=== PATIENT | female | born 1985 | race Caucasian/White ===

== ENCOUNTER 2020-05-12 15:58 | Inpatient (IN) ==
[2020-05-12] MEDS ORDERED: OXYTOCIN/0.9 % SODIUM CHLORIDE 30 UNITS/500 ML BAG IV ONE ×2 (16:09→20:36)
[2020-05-12] MEDS ORDERED: RINGER'S SOLUTION,LACTATED 1,000 ML IV ONE (16:09)
[2020-05-12] MEDS ORDERED: DEXTROSE 5%-LACTATED RINGERS 1,000 ML IV PRN (16:09)
[2020-05-12] MEDS ORDERED: ONDANSETRON 4 MG TAB.RAPDIS PO PRN (16:09)
[2020-05-12] MEDS ORDERED: BUPIVACAINE HCL/0.9 % NACL/PF 250 ML EP PRN (16:37)
[2020-05-12] MEDS ORDERED: ONDANSETRON HCL/PF 2 MG/ML VIAL IV PRN (16:37)
[2020-05-12] MEDS ORDERED: NALOXONE HCL 1 MG/1 ML SYRG IV PRN (16:37)
[2020-05-12] MEDS ORDERED: fentaNYL CITRATE/PF 50 MCG/ML AMPUL ONE (16:41)
[2020-05-12] MEDS ORDERED: fentaNYL CITRATE/PF 50 MCG/ML AMPUL IT SCH (16:45)
--- NOTE | 2020-05-12 17:05 | ANES ---
Post Anesthesia Discharge - Transfer of Care Transfer of Care handoff given to nurse: Yes - Anesthesia Post Op Note Anesthesia Post Op Note: Care transferred to OB RN
--- NOTE | 2020-05-12 17:05 | ANES ---
Anesthesia Pre Procedure Eval Vitals/Labs: Last Vital Signs Temp 37.2 C 05/12/20 16:11 Pulse 90 05/12/20 16:11 Resp 20 05/12/20 16:11 BP 124/79 05/12/20 16:11 Pulse Ox 97 05/12/20 16:11 HOME MEDICATIONS prenat.vits,roberth,etu-tcdp-vnymo 1 tab PO DAILY 11/12/19 [Last Taken Unknown] aspirin 81 mg tablet,delayed release 81 mg PO DAILY 03/10/20 [Last Taken Unknown] acetone (urine) test See Rx Instructions .ROUTE .MEDSUPPLY #100 ea 03/16/20 [Last Taken Unknown] blood sugar diagnostic See Rx Instructions .ROUTE .MEDSUPPLY #100 ea 03/16/20 [Last Taken Unknown] blood-glucose meter See Rx Instructions .ROUTE .MEDSUPPLY #1 ea 03/16/20 [Last Taken Unknown] lancets 28 gauge See Rx Instructions .ROUTE .MEDSUPPLY #100 ea 03/16/20 [Last Taken Unknown] Allergies/Adverse Reactions: Allergies Allergy/AdvReac Type Severity Reaction Status Date / Time No Known Allergies Allergy Verified 05/12/20 16:14 - Planned Procedure Planned Procedure: active labor Medication List Reviewed:: Yes Allergies Verified: Yes Medical History (Last Reviewed 05/12/20 @ 17:04 by Sean Leyva CRNA) Gestational diabetes mellitus (GDM) (Acute) Onset Date: 03/16/20 ASCUS with positive high risk HPV cervical (Acute) 2011 - did not follow up with colposcopy or repeat pap Syncope Last episode September 2019. Sporadic. No obvious trigger. Family history of seizures (passing out)- mother, brother, sister. Brother and Sister undiagnosed. Pt has been worked up by neuro and cardio in [place] with no resulting diagnosis. De Quervain's disease (radial styloid tenosynovitis) Onset Date: ~05/2012 Left Frequent headaches tx with ibuprofen and rest HPV (human papilloma virus) infection Onset Date: ~2011 Surgical History (Last Reviewed 05/12/20 @ 17:04 by Sean Leyva CRNA) History of carpal tunnel release Onset Date: ~07/2013 left first dorsal compartment of the wrist and excision of vertical septum- Dr. Mason History of colposcopy Onset Date: ~06/08/11 No bx due to Status post de Quervain's release surgery Onset Date: ~05/2012 Left- Dr. Abreu 05/2012- Dr. Casper -09/2012 Family History (Last Reviewed 05/12/20 @ 17:04 by Sean Leyva CRNA) Mother Seizures Father Alive and well Brother Seizures passes out Sister Seizures passes out - Family Anesthesia History Family History:: no untoward family reactions to anesthesia - Airway/Neck/Teeth Within Normal Limits:: Yes Teeth Condition: intact Neck Exam: full range of motion Mallampatti Score: 1 Thyromental (T-M) distance: > 6 cm Mandibulo Hyoid distance: > 3 cm - Respiratory Respiratory Physical: lungs clear Smoking Status: Never smoker Sleep Apnea currently treated: No Sleep Apnea by current assessment: No - Cardiovascular Tolerate Activity: Good Heart Sounds: S1 & S2, Regular - Gastrointestinal NPO since: 1200 - Anesthesia Assessment and Plan ASA Class: PS, II, E Anesthesia Type Plan: Epidural Planned difficult intubation/equipment available: No
--- NOTE | 2020-05-12 17:06 | ANES ---
Post Anesthesia Assessment - Vital Signs Vitals: Last Vital Signs Temp 37.2 C 05/12/20 16:11 Pulse 90 05/12/20 16:11 Resp 20 05/12/20 16:11 BP 124/79 05/12/20 16:11 Pulse Ox 97 05/12/20 16:11 Airway Patency: Normal - Mental Status Level Of Consciousness: Awake - Pain Level Pain Score: 2 - N/V Assessment Nausea/Vomiting Presence: None Dehydration:: No
--- NOTE | 2020-05-12 17:07 | ANES ---
Anesthesia Procedure Note Procedure Note: ANESTHESIA PROCEDURE NOTE Date of Procedure: 05/12/2020 Time of procedure: 1650. Performed by: Dio Leyva CRNA Director Of Assisted Living: None. Preprocedure diagnosis: Active labor. Post procedure diagnosis: Same. Procedure: Insertion of labor epidural. Indications: The patient is a 34-year-old multi female in active labor requesting labor epidural for pain management. Findings: See below. Details of the procedure: The patient was placed in a sitting position. Back was prepped with DuraPrep. Patient was then draped in a sterile fashion. Lidocaine 1% was infiltrated to the skin and subcutaneous tissues at the level of the L3 4 interspace. The epidural space was identified using a 18-gauge Tuohy needle with [id number] technique. 20 mcg fentanyl was given intrathecally using a 27 ga. spinal needle. Epidural catheter was inserted without difficulty. Negative test dose was elicited using 5 mL of 1.5% preservative-free lidocaine plus epinephrine 1 200,000. The epidural catheter was then taped and secured in place. EBL: Minimal. Fluids: N/A. Specimen: N/A. Post procedure condition: The patient tolerated the procedure well. No complications were noted. Thank you for this consultation. Connor CRNA
--- NOTE | 2020-05-12 17:09 | HP ---
Chief Complaint - Chief Complaint Date of Service: 05/12/20 Time of Service: 17:00 Chief Complaint: decreased movement History of Present Illness: 34 yo at 38 weeks presents to L&D for management of labor. She was seen in the office today for routine visit complaining of decreased movement. NST was reassuring and revealed frequent contractions. She was dilated to 7/90/0. This complicated by COVID (01/31/20), GDM - diet controlled, short cervix early in (resolved at 20wks). Rh positive Rubella immune GBS negative Medical History (Last Reviewed 05/12/20 @ 17:04 by Neal Espitia DO) Gestational diabetes mellitus (GDM) (Acute) Onset Date: 03/16/20 ASCUS with positive high risk HPV cervical (Acute) 2011 - did not follow up with colposcopy or repeat pap Syncope Last episode September 2019. Sporadic. No obvious trigger. Family history of seizures (passing out)- mother, brother, sister. Brother and Sister undiagnosed. Pt has been worked up by neuro and cardio in [facility] with no resulting diagnosis. De Quervain's disease (radial styloid tenosynovitis) Onset Date: ~05/2012 Left Frequent headaches tx with ibuprofen and rest HPV (human papilloma virus) infection Onset Date: ~2011 Surgical History: Surgical History (Last Reviewed 05/12/20 @ 17:04 by Neal Espitia DO) History of carpal tunnel release Onset Date: ~07/2013 left first dorsal compartment of the wrist and excision of vertical septum- Dr. Mason History of colposcopy Onset Date: ~06/08/11 No bx due to Status post de Quervain's release surgery Onset Date: ~05/2012 Left- Dr. Abreu 05/2012- Dr. Casper -09/2012 Family History: Family History (Last Reviewed 05/12/20 @ 17:04 by Neal Espitia DO) Mother Seizures Father Alive and well Brother Seizures passes out Sister Seizures passes out Social History: (Last Reviewed 05/12/20 @ 17:05 by Neal Espitia DO) Social History: adopted: No Marital status: lives independently: Yes household members: family number of children: 1 current occupational status: unemployed Highest level of school completed/degree received: Bachelor's degree Sexually Active: Yes Service: Yes branch: [employer] dates of service: [id number] Tobacco: Smoking Status: Former smoker Alcohol: alcohol intake: former alcohol intake frequency: holiday/special occasion details: none since + UPT Substance Use: substance use type: does not use Dietary Habits: caffeine: Yes caffeine comment: occasional Type: carbonated beverages daily servings of milk/calcium: 0-1 Pets: pets and animals: dog(s) Exercise: frequency: does not exercise Review Of Systems (GEN) - Review of Systems Generalized/Overall Review: Present: No Symptoms Reported EENTM: Present: No Symptoms Reported Respiratory: Present: No Symptoms Reported Cardiac: Present: No Symptoms Reported Abdominal: Present: No Symptoms Reported Genitourinary: Present: Frequency, Other - vaginal pressure Musculoskeletal: Present: No Symptoms Reported Neurological: Present: No Symptoms Reported Skin: Present: No Symptoms Reported Endocrine: Present: No Symptoms Reported Additional Comments: decreased movement Allergies/Adverse Reactions: Allergies Allergy/AdvReac Type Severity Reaction Status Date / Time No Known Allergies Allergy Verified 05/12/20 16:14 Home Medications: HOME MEDICATIONS prenat.vits,roberth,uag-qpag-zlyrs 1 tab PO DAILY 11/12/19 [Last Taken Unknown] aspirin 81 mg tablet,delayed release 81 mg PO DAILY 03/10/20 [Last Taken Unknown] acetone (urine) test See Rx Instructions .ROUTE .MEDSUPPLY #100 ea 03/16/20 [Last Taken Unknown] blood sugar diagnostic See Rx Instructions .ROUTE .MEDSUPPLY #100 ea 03/16/20 [Last Taken Unknown] blood-glucose meter See Rx Instructions .ROUTE .MEDSUPPLY #1 ea 03/16/20 [Last Taken Unknown] lancets 28 gauge See Rx Instructions .ROUTE .MEDSUPPLY #100 ea 03/16/20 [Last Taken Unknown] Exam - Exam Vital Signs: Vital Signs - Last Taken Temp 37.2 C 05/12/20 16:11 Pulse 90 05/12/20 16:11 Resp 20 05/12/20 16:11 BP 124/79 05/12/20 16:11 Pulse Ox 97 05/12/20 16:11 Constitutional: Present: Alert, Oriented x3, Cooperative, No distress ENT Exam: Present: hearing grossly normal Neck: Present: non-tender. Absent: thyromegaly Breasts: Present: Exam deferred Respiratory: Present: lungs clear, no respiratory distress Cardiovascular/Chest: Present: normal peripheral pulses, regular rate, rhythm, no edema Abdomen: Present: Normal bowel sounds, soft, nontender, no rebound tenderness, other - Gravid /Rectal: Present: Other - Cervix 790/0 Extremity: Present: no pedal edema, no calf tenderness Skin Exam: Present: normal color, warm/dry, no cyanosis Lymphatic: Present: no adenopathy Neurologic: Present: alert, normal mood/affect, oriented x 3 Appearance: Present: appropriate appearance, appropriate insight Eye contact: Present: cooperative, good eye contact Thoughts: Present: normal mood /affect Assessment/Plan - Assessment/Plan (1) Labor established Assessment: Admit for routine management of labor. Accuchecks q 2h in labor. Epidural and pitocin PRN. Problem: Acute (2) Gestational diabetes mellitus (GDM) Problem: Acute Qualifiers: Gestational diabetes mellitus control: diet-controlled (3) COVID-19 affecting in second trimester Problem: Resolved
--- NOTE | 2020-05-12 17:24 | PN ---
Progess Note - Interim Date: 05/12/20 Time: 17:23 Narrative: 05/12/20 17:23 Patient comfortable with epidural Vital signs stable. FHT: 120 baseline, reassuring contractions q 4-6 min Cervix: 7/90/0, AROM-clear Impression: Intrauterine at 38 weeks in labor Plan: Continue present plan
[2020-05-12] MEDS ORDERED: IBUPROFEN 800 MG TABLET PO PRN (20:36)
[2020-05-12] MEDS ORDERED: GLYCERIN/WITCH HAZEL LEAF 40 APPL BOX TP PRN (20:36)
[2020-05-12] MEDS ORDERED: BISACODYL 10 MG SUPP.RECT RC PRN (20:36)
[2020-05-12] MEDS ORDERED: HYDROCORTISONE 30 APPL TUBE TP PRN (20:36)
[2020-05-12] MEDS ORDERED: BENZOCAINE/MENTHOL 81 SPRAY CAN TP PRN (20:36)
[2020-05-12] MEDS ORDERED: SENNOSIDES 8.6 MG TABLET PO PRN (20:36)
[2020-05-12] MEDS ORDERED: MISOPROSTOL 200 MCG TABLET PO STA (20:36)
[2020-05-12] MEDS ORDERED: oxyCODONE HCL/ACETAMINOPHEN 1 TAB TABLET PO PRN (20:36)
--- NOTE | 2020-05-12 20:39 | OR ---
Operative Report - Dictated Report Narrative: Spontaneous vaginal delivery of vigorously crying viable female at 2015 on 05/12/2019 with Apgars 9 and 9, weighing 3360 g in RON position. Cord clamping delayed approximately 1 minute Placenta delivered complete, intact, with three vessel cord Estimated blood loss: 200 mL. Due to intermittent uterine atony failing to respond to 20 milliunits of Pitocin, patient was given 600 mcg of Cytotec rectally x1. Anesthesia: Epidural Lacerations: 1 cm first-degree vaginal laceration with no repair necessary. History for MU History for Definition: * The number of deliveries resulting in a live the patient experienced prior to current hospitalization * The previous delivery of live twins or any live multiple gestation is considered one live event. *If primagravida or nulliparous is documented select zero for the number of previous live births. Live Events: Live Events: 1
[2020-05-12] MEDS: DOCUSATE SODIUM 100 MG CAPSULE PO SCH (23:56)
[2020-05-13] MEDS: IBUPROFEN 800 MG TABLET PO PRN ×3 (05:54→20:12)
[2020-05-13] MEDS: DOCUSATE SODIUM 100 MG CAPSULE PO SCH ×2 (08:55→20:17)
--- NOTE | 2020-05-13 08:57 | PN ---
Subjective - Date and Time Seen Date: 05/13/20 Time: 08:52 Objective - Vitals Vitals: Last Vital Signs Temp 36.5 C 05/13/20 05:50 Pulse 80 05/13/20 05:50 Resp 18 05/13/20 05:50 BP 119/70 05/13/20 05:50 Pulse Ox 98 05/13/20 05:50 Patient denies complaints. Breast-feeding. Fasting blood sugar 71 Lochia wnl abdomen - soft, nontender Uterus -firm, at umbilicus - 1 No calf tenderness Impression: day #1 - s/p spontaneous vaginal delivery. Gestational diabetes-resolved. Plan: Continue routine care Cauti Physician Documentation - Urinary Catheter Management Urethral (Sheikh) Date of Insertion: 05/12/20 Time of Insertion: 18:00 Date of Removal: 05/12/20 Time of Removal: 20:00 Assessment/Plan - Problems/Diagnosis (1) Labor established Problem: Acute (2) Gestational diabetes mellitus (GDM) Problem: Acute Qualifiers: Gestational diabetes mellitus control: diet-controlled (3) COVID-19 affecting in second trimester Problem: Resolved
[2020-05-14] MEDS: IBUPROFEN 800 MG TABLET PO PRN (09:17)
[2020-05-14] MEDS: DOCUSATE SODIUM 100 MG CAPSULE PO SCH (09:19)
--- NOTE | 2020-05-14 09:24 | PN ---
Subjective - Date and Time Seen Date: 05/14/20 Time: :22 Objective - Vitals Vitals: Last Vital Signs Temp 36.5 C 05/14/20 00:05 Pulse 83 05/14/20 00:05 Resp 16 05/14/20 00:05 BP 109/56 05/14/20 00:05 Pulse Ox 98 05/14/20 00:05 Patient denies complaints. Breast feeding well. Lochia wnl abdomen - soft, nontender Uterus -firm, at umbilicus - 2 No calf tenderness Impression: day #2 - s/p spontaneous vaginal delivery. Plan: Routine discharge instructions Cauti Physician Documentation - Urinary Catheter Management Urethral (Sheikh) Date of Insertion: 05/12/20 Time of Insertion: 18:00 Date of Removal: 05/12/20 Time of Removal: 20:00 Assessment/Plan - Problems/Diagnosis (1) Labor established Problem: Acute (2) Gestational diabetes mellitus (GDM) Problem: Acute Qualifiers: Gestational diabetes mellitus control: diet-controlled (3) COVID-19 affecting in second trimester Problem: Resolved
--- NOTE | 2020-05-14 09:27 | DS ---
OB Discharge Summary (1) Labor established Status: Resolved (2) Gestational diabetes mellitus (GDM) Status: Resolved Qualifiers: Gestational diabetes mellitus control: diet-controlled Trimester: third trimester Qualified Code(s): O24.410 - Gestational diabetes mellitus in , diet controlled (3) COVID-19 affecting in second trimester Status: Resolved Delivery Date: 05/12/20 Delivery Time: 20:15 :: 2 Para:: 2 Gestational weeks:: 38 Gestational days:: 0 Intrapartum Procedures: Spontaneous Vaginal Delivery, Delivered Discharge Diagnosis: Term -Delivered - Discharge Information Discharge Location: Home Disposition: Home self-care Condition: Good Referrals: Wendy Salinas MD [Primary Care Provider] - Activity on Discharge:: Activity as tolerated Discharge Diet: General/regular food Additional Patient Instructions (free text): Vidya you have appointment with Dr. Espitia SaturdayJune 14 at 2:15. Laurita has an appointment on Saturday at 2:[address] Soto. Laurita's blood type is O+ Please continue to feed Laurita on demand or every 2-3 hours, waking her a night to feed. Please always keep on her back to sleep with no loose blankets or other objects in her sleeping space. Laurita's weight today is Thank you for choosing [facility] place for your special delivery. Please call if you have any questions or concerns. [facility] [phone] [facility] [address] [phone] [facility] [phone] Prescriptions (Any new or edited meds): Ibuprofen [Motrin] 200 - 800 mg PO Q6H PRN #100 tab PRN Reason: Pain Complete Home Medications List: Complete Home Medication List: Ibuprofen [Motrin] 200 - 800 mg PO Q6H PRN #100 tab 05/12/20 Vits96/Iron Fum/Folic [ S] 1 tab PO DAILY 05/12/20 - Plan Discharge to:: Home Follow up in office in:: 3-4 weeks Comment:: Check Fasting and 1h PP blood sugar day before appt - Melrude Information Weight (Grams): 3,360 Sex: Female Score 1 min: 9 Score 5 min: 9 Complications: None, Meconium
[2020-05-14 11:19] VITALS: BP 117/70
== END 2020-05-14 12:30 | disposition home or self-care (01) | DRG 806 ==
LOC: OB 15:58
PROVIDERS: ADMIT Obstetrics & Gynecology; ATTEND Obstetrics & Gynecology